=== PATIENT | female | born 1970 | race African-American/Black ===

== ENCOUNTER 2021-09-05 11:35 | Emergency (ER) | payer MEDICAID ==
[~2021-09-05] VITALS: Ht 162.6 cm; Wt 68.0 kg
[2021-09-05 13:01] VITALS: BP 159/97
[2021-09-05] MEDS ORDERED: HYDROcodone-ACET 5/325MG TAB PO ONE (13:15)
== END 2021-09-05 13:29 | disposition home or self-care (01) ==
LOC: ER 11:35
DX: N64.4 Mastodynia (principal); D64.9 Anemia, unspecified; E78.5 Hyperlipidemia, unspecified

== ENCOUNTER 2021-09-08 07:37 | Emergency (ER) | payer MEDICAID ==
[~2021-09-08] VITALS: Ht 165.1 cm; Wt 68.0 kg
[2021-09-08] MEDS ORDERED: cloNIDine HCL 0.1 MG TAB PO ONE (07:45)
[2021-09-08 09:42] VITALS: BP 157/81
== END 2021-09-08 09:45 | disposition home or self-care (01) ==
LOC: ER 07:37
DX: S46.912A Strain of unspecified muscle, fascia and tendon at shoulder and upper arm level, left arm, initial encounter (principal); I10 Essential (primary) hypertension; E78.5 Hyperlipidemia, unspecified; Z86.2 Personal history of diseases of the blood and blood-forming organs and certain disorders involving the immune mechanism; X58.XXXA Exposure to other specified factors, initial encounter; Y93.89 Activity, other specified; Y92.89 Other specified places as the place of occurrence of the external cause; Y99.8 Other external cause status
CPT/HCPCS: 93971

== ENCOUNTER 2024-07-28 14:23 | Emergency (ER) | payer MEDICAID, OTHER ==
[~2024-07-28] VITALS: Ht 165.1 cm; Wt 73.8 kg
[2024-07-28] MEDS: AMOXICILLIN/CLAVUL 875 MG TAB PO ONE (14:58)
[2024-07-28] MEDS: KETOROLAC TROMETH 60MG/2ML VIAL IM ONE (14:58)
[2024-07-28] MEDS: TETANUS-DIPTH-ACEL PERTUSSIS 0.5ML SYR Tdap IM ONE (15:04)
[2024-07-28 15:13] VITALS: PULSE 66; RESP 20; O2SAT 98
[2024-07-28] MEDS ORDERED: CYCL-611 PO (16:42)
[2024-07-28] MEDS ORDERED: AMOX500T86 PO (16:42)
[2024-07-28] MEDS ORDERED: IBU600T PO (16:42)
[2024-07-28] MEDS ORDERED: AML5T PO (16:56)
[2024-07-28 17:21] VITALS: BP 167/95; RESP 20; O2SAT 98
== END 2024-07-28 17:23 | disposition home or self-care (01) ==
LOC: ER 14:23
DX: S29.012A Strain of muscle and tendon of back wall of thorax, initial encounter (principal); S41.151A Open bite of right upper arm, initial encounter; S50.811A Abrasion of right forearm, initial encounter; I10 Essential (primary) hypertension; W54.0XXA Bitten by dog, initial encounter; Y93.89 Activity, other specified; Y92.89 Other specified places as the place of occurrence of the external cause; Y99.8 Other external cause status
CPT/HCPCS: 90471; 90715; 96372; 99284; J1885